=== PATIENT | female | born 1945 | race Caucasian/White ===

== ENCOUNTER → 2017-07-04 | Outpatient (CLI) | payer MEDICARE, OTHER ==
[~2017-07-04] MED LIST: BENICAR HCT 12.1 TA1 PO
[2017-07-04 14:10] LABS: BILIRUBIN, INDIRECT 0.11 mg/dL (0-0.9)
== END ==
LOC: CARL-LAB 09:44
PROVIDERS: Podiatrist
DX: Z79.899 Other long term (current) drug therapy (principal)

== ENCOUNTER → 2017-08-01 | Outpatient (CLI) | payer MEDICARE, OTHER ==
[2017-08-01 13:20] LABS: HEMOGLOBIN 11.6 g/dL (12.2-16.2); LYMPH # 2.2 K/mm3 (0.7-4.5); LYMPH % 28.7 % (10-50.0)
[2017-08-01 15:23] LABS: NEUTROPHILS 61 % (42-76)
[2017-08-01 15:56] LABS: BUN 12 mg/dL (7-18)
[2017-08-01 16:56] LABS: GFR (ESTIMATED) 82 ML/MIN (59-)
== END ==
LOC: CARL-LAB 08:35
PROVIDERS: Internal Medicine Adolescent Medicine
DX: E11.9 Type 2 diabetes mellitus without complications (principal)